=== PATIENT | female | born 1955 | race Caucasian/White ===

== ENCOUNTER → 2016-09-20 17:26 | Outpatient (CLI) | payer OTHER | END | disposition home or self-care (01) | LOC: D.MAMMO 08-29 13:15 | DX: Z12.31 Encounter for screening mammogram for malignant neoplasm of breast (principal) ==

== ENCOUNTER 2017-04-22 11:59 | Inpatient (IN) | payer OTHER ==
[~2017-04-22] VITALS: Ht 156.2 cm; Wt 62.3 kg
[2017-04-22 12:31] LABS: BASOPHILS 0.1 % (0-2); EOSINOPHILS 0 % (0-7); HEMATOCRIT 32.3 % (36.0-48.0); HEMOGLOBIN 10.8 g/dL (12-16); IMMATURE GRANULOCYTES 1.7 % (0-5); LYMPHOCYTES 4.3 % (15-50); MCH 33.5 pg (26.0-34.0); MCHC 33.4 g/dL (31.0-37.0); MCV 100.3 fL (80.0-100.0); MEAN PLATELET VOLUME 9.2 fL (7.4-10.4); MONOCYTES 3.1 % (2-11); NEUTROPHILS 90.8 % (40-80); PLATELET COUNT 226 10x3/uL (130-400); RBC 3.22 10x6/uL (4.00-5.40); RDW 13.1 % (11.5-14.5); WBC 15.6 10x3/uL (4.8-10.8)
[2017-04-22 12:55] LABS: ALKALINE PHOSPHATASE 80 U/L (46-116); ALT (SGPT) 24 U/L (10-68); BILIRUBIN - TOTAL 0.51 mg/dL (0.2-1.3); CALC OSMOLALITY 259 mosm/kg (275-300); CALCIUM 8.1 mg/dL (8.5-10.1); CARBON DIOXIDE 22.5 mmol/L (21.0-32.0); CHLORIDE - SERUM 95 mmol/L (98-107); CREATININE - SERUM 0.7 mg/dL (0.6-1.3); GLUCOSE 95 mg/dL (74-106); POTASSIUM - SERUM 3.7 mmol/L (3.5-5.1); PROTEIN - SERUM 6.6 g/dL (6.4-8.2); SODIUM 130 mmol/L (136-145); UREA NITROGEN 10 mg/dL (7-18); eGFR NON AFRICAN AMERICAN 90 mL/min (90-120)
[2017-04-22 13:27] LABS: APPEARANCE HAZY (CLEAR); BILIRUBIN NEGATIVE (NEGATIVE); COLOR YELLOW (YELLOW); GLUCOSE NEGATIVE (NEGATIVE); KETONE MODERATE mg/dL (NEGATIVE); LEUKOCYTE ESTERASE 1+ (NEGATIVE); NITRITE NEGATIVE (NEGATIVE); PH 7.5 (5.0-6.0); PROTEIN NEGATIVE (NEGATIVE); SPECIFIC GRAVITY 1.005 (1.005-1.020); UROBILINOGEN NORMAL (NORMAL)
[2017-04-22 13:30] LABS: BACTERIA FEW /hpf (NONE SEEN); RED CELLS - URINE 0-5 /hpf (0-5)
--- NOTE | 2017-04-22 14:40 | NUR ---
RECEIVED PATIENT TO ROOM 2130 VIA WHEELCHAIR FROM THE ED. PATIENT ALERT/ORINETED. RESP EVEN AND UNLABORED. PATIENT REPORTS DRY NON PRODUCTIVE COUGH. PATIENTS AT BEDSIDE. 18 GUAGE TO LEFT FOREARM. NS SALINE NOW INFUSING AT 125 ML/HR ORDERED. CALL LIGHT WITHIN REACH. PATIENT PLACED ON TELEMETRY AT THIS TIME. NO DISTRESS.
[2017-04-22] MEDS ORDERED: BIOTIN5 MG PO (14:52)
[2017-04-22] MEDS ORDERED: OMEGA 3 FISH OI1 CAP PO (14:52)
[2017-04-22] MEDS ORDERED: PRINIVIL20 MG PO (14:53)
[2017-04-22] MEDS ORDERED: TYLENOL PM1 TAB PO (14:54)
[2017-04-22] MEDS ORDERED: ADVIL200 MG PO (14:54)
[2017-04-22] MEDS ORDERED: AUGMENTIN 875-11 TAB PO (14:55)
[2017-04-22] MEDS ORDERED: FE C TABLET1 TAB PO (14:56)
[2017-04-22] MEDS ORDERED: PROBIOTIC250 MG PO (14:56)
[2017-04-22] MEDS ORDERED: LECITHIN1200 MG PO (14:58)
[2017-04-22] MEDS ORDERED: ADIPEX-P37.5 M1 PO (14:59)
[2017-04-22] MEDS ORDERED: MULTIPLE VITAMI1 TA1 PO (14:59)
[2017-04-22] MEDS ORDERED: EVISTA60 MG PO (15:00)
[2017-04-22] MEDS ORDERED: METOPROLOL TART50 MG PO (15:00)
[2017-04-22] MEDS ORDERED: PROZAC40 MG PO (15:01)
[2017-04-22] MEDS ORDERED: SYNTHROID50 MCG PO (15:01)
[2017-04-22] MEDS ORDERED: CO Q-10100 MG PO (15:02)
[2017-04-22 15:45] VITALS: BP 105/69; BMI 26.5
[2017-04-22 16:34] LABS: % SATURATION 7 % (15-55); IRON 12 ug/dl (35-150); TOTAL IRON BIND CAPACITY 162 ug/dl (260-445); UNSAT IRON BIND CAPACITY 150 ug/dl (150-375)
[2017-04-22 19:54] VITALS: BP 112/70
--- NOTE | 2017-04-22 20:00 | NUR ---
RESUMED CARE OF PT, LYING IN BED RESPIRATIONS EVEN AND UNLABORED ON 2LPM VIA NC. [address] ST ON TELEMETRY. LEFT FOREARM INFUSING NS @ 125. TEMP NOTED AT 101.5. WILL CONTINUE TO MONITOR. SEE NURSE ASSESSMENT. CALL LIGHT IN REACH.
[2017-04-23] VITALS: BP 114/76
--- NOTE | 2017-04-23 00:44 | NUR ---
LYING IN BED WITH EYES CLOSED, CALL LIGHT IN REACH. WILL CONTINUE TO MONITOR.
[2017-04-23 04:00] VITALS: BP 146/86
[2017-04-23 05:22] LABS: BASOPHILS 0 % (0-2); EOSINOPHILS 0.1 % (0-7); HEMATOCRIT 33.2 % (36.0-48.0); HEMOGLOBIN 10.8 g/dL (12-16); IMMATURE GRANULOCYTES 0.9 % (0-5); LYMPHOCYTES 5.5 % (15-50); MCH 33.2 pg (26.0-34.0); MCHC 32.5 g/dL (31.0-37.0); MCV 102.2 fL (80.0-100.0); MEAN PLATELET VOLUME 9.5 fL (7.4-10.4); MONOCYTES 3.2 % (2-11); NEUTROPHILS 90.3 % (40-80); PLATELET COUNT 252 10x3/uL (130-400); RBC 3.25 10x6/uL (4.00-5.40); RDW 13.4 % (11.5-14.5); WBC 14.3 10x3/uL (4.8-10.8)
[2017-04-23 05:57] LABS: ALBUMIN 1.9 g/dL (3.4-5.0); ALKALINE PHOSPHATASE 86 U/L (46-116); ALT (SGPT) 24 U/L (10-68); BILIRUBIN - TOTAL 0.32 mg/dL (0.2-1.3); CALC OSMOLALITY 263 mosm/kg (275-300); CALCIUM 8.3 mg/dL (8.5-10.1); CARBON DIOXIDE 24.1 mmol/L (21.0-32.0); CHLORIDE - SERUM 100 mmol/L (98-107); CREATININE - SERUM 0.6 mg/dL (0.6-1.3); GLUCOSE 92 mg/dL (74-106); POTASSIUM - SERUM 3.8 mmol/L (3.5-5.1); PRO BNP 815 pg/mL (0-125); PROTEIN - SERUM 6.6 g/dL (6.4-8.2); SODIUM 133 mmol/L (136-145); UREA NITROGEN 8 mg/dL (7-18); eGFR NON AFRICAN AMERICAN > 90 mL/min (90-120)
--- NOTE | 2017-04-23 07:15 | NUR ---
RESTING QUIETLY RESP UNLABORED NAD NOTED
--- NOTE | 2017-04-23 07:30 | NUR ---
ASSESSMENT COMPLETED. TELEMERTY SHOWS ST AT 106. 02 AT 2/M PER NC. LEFT FA WITH IV OF NS AT 125. NO TEMP. DENIES ANY NEEDS. CALL LIGHT IN REACH WITH SR UP
[2017-04-23 08:00] VITALS: BP 108/78
--- NOTE | 2017-04-23 13:07 | NUR ---
UP ON SIDE OF BED FOR DIET. DENIES ANY NEEDS.TELEMERTY SHOWS SRWILL MONITOR
[2017-04-23 19:00] VITALS: BP 122/72
--- NOTE | 2017-04-23 20:05 | NUR ---
IV SITED TO RIGHT WRIST, 22 GAUGE, FIRST ATTEMPT, PT TOLERTED WELL. RECONNECTED IV FLUIDS AND LEVAQUIN INFUSING. AT BED SIDE, BED LOW, CL IN REACH.
--- NOTE | 2017-04-24 03:29 | NUR ---
RESTING WITH EYES CLOSED, RESPERATIONS EVEN, NO S/S DISTRESS NOTED.
--- NOTE | 2017-04-24 03:47 | NUR ---
RESTING IN BED WITH NO DISTRESS. RESPS EVEN/NONLABORED. NO DISTRESS. CPOC.
[2017-04-24 04:00] VITALS: BP 131/80
--- NOTE | 2017-04-24 04:28 | NUR ---
UP TO BR, GAIT STEADY.
--- NOTE | 2017-04-24 05:46 | NUR ---
PT AWAKE AND MORE ALERT THEN AT THE BEGINNING OF THIS SHIFT, EARLY AM MED GIVEN WITH ICE WATER, PT DENIES PAIN OR NEEDS, BED LOW, CL IN REACH.
[2017-04-24 06:48] LABS: BASOPHILS 0.1 % (0-2); EOSINOPHILS 0 % (0-7); HEMATOCRIT 30.9 % (36.0-48.0); HEMOGLOBIN 10.2 g/dL (12-16); IMMATURE GRANULOCYTES 0.7 % (0-5); LYMPHOCYTES 6.4 % (15-50); MCH 33.1 pg (26.0-34.0); MCV 100.3 fL (80.0-100.0); MEAN PLATELET VOLUME 9.5 fL (7.4-10.4); MONOCYTES 2.1 % (2-11); NEUTROPHILS 90.7 % (40-80); PLATELET COUNT 229 10x3/uL (130-400); RBC 3.08 10x6/uL (4.00-5.40); RDW 13.8 % (11.5-14.5); WBC 11.8 10x3/uL (4.8-10.8)
[2017-04-24 07:08] LABS: ALBUMIN 1.6 g/dL (3.4-5.0); ALKALINE PHOSPHATASE 79 U/L (46-116); ALT (SGPT) 54 U/L (10-68); BILIRUBIN - TOTAL 0.25 mg/dL (0.2-1.3); CALC OSMOLALITY 274 mosm/kg (275-300); CALCIUM 8.4 mg/dL (8.5-10.1); CARBON DIOXIDE 19.9 mmol/L (21.0-32.0); CHLORIDE - SERUM 103 mmol/L (98-107); CREATININE - SERUM 0.5 mg/dL (0.6-1.3); GLUCOSE 147 mg/dL (74-106); POTASSIUM - SERUM 3.5 mmol/L (3.5-5.1); PROTEIN - SERUM 6.3 g/dL (6.4-8.2); SODIUM 137 mmol/L (136-145); UREA NITROGEN 8 mg/dL (7-18); eGFR NON AFRICAN AMERICAN > 90 mL/min (90-120)
--- NOTE | 2017-04-24 07:30 | NUR ---
RESTING QUIETLY RESP UNLABORED NAD NOTED
--- NOTE | 2017-04-24 07:40 | NUR ---
ASSESSMENT COMPLETED. 02 AT 2 L/M PER NC. TELEMERTY SHOWS SR. RIGHT WRIST IV. UP AB RENEE. CALL LIGHT IN REACH WITH SR UP. WILL MONITOR
[2017-04-24 08:18] VITALS: BP 121/72
[2017-04-24 09:14] LABS: FOLATE (FOLIC ACID) - SERUM 12.5 ng/mL (>3.0)
[2017-04-24 10:16] LABS: ANA REFLEX - DIRECT Negative (Negative)
[2017-04-24 12:23] VITALS: BP 101/65
--- NOTE | 2017-04-24 16:37 | NUR ---
UP FOR SHOWER. TOLORATED WELL, NO NEEDS VOICEC
[2017-04-24 17:06] VITALS: BP 127/82
--- NOTE | 2017-04-24 21:49 | NUR ---
HS MEDS GIVEN WITH FRESH ICE WATER. UP TO BR, GAIT STEADY. XANAX 0.25 MG GIVEN AT PT REQUEST TO ASSIST WITH REST, PT DECLINED BENADRYL AT THIS TIME, STATING THAT SHE DOESNT WANT TOO MUCH THAT WILL SEDATE HER. DENIES ANY OTHER NEEDS AT THIS TIME, BED LOW, CL IN REACH.
[2017-04-25] VITALS: BP 125/80
--- NOTE | 2017-04-25 04:22 | NUR ---
RESTING WITH EYES CLOSED, RESPERATIONS EVEN, NO S/S DISTRESS NOTED.
[2017-04-25 06:24] LABS: BASOPHILS 0.1 % (0-2); EOSINOPHILS 0 % (0-7); HEMATOCRIT 29.9 % (36.0-48.0); HEMOGLOBIN 10.1 g/dL (12-16); IMMATURE GRANULOCYTES 0.8 % (0-5); LYMPHOCYTES 9.4 % (15-50); MCH 33.2 pg (26.0-34.0); MCHC 33.8 g/dL (31.0-37.0); MCV 98.4 fL (80.0-100.0); MEAN PLATELET VOLUME 9.9 fL (7.4-10.4); MONOCYTES 4.4 % (2-11); NEUTROPHILS 85.3 % (40-80); PLATELET COUNT 248 10x3/uL (130-400); RBC 3.04 10x6/uL (4.00-5.40); RDW 13.6 % (11.5-14.5); WBC 13.3 10x3/uL (4.8-10.8)
[2017-04-25 06:50] LABS: ALBUMIN 1.6 g/dL (3.4-5.0); ALKALINE PHOSPHATASE 82 U/L (46-116); CALCIUM 8.4 mg/dL (8.5-10.1); CARBON DIOXIDE 24.5 mmol/L (21.0-32.0); CHLORIDE - SERUM 104 mmol/L (98-107); CREATININE - SERUM 0.5 mg/dL (0.6-1.3); GLUCOSE 152 mg/dL (74-106); POTASSIUM - SERUM 3.3 mmol/L (3.5-5.1); PROTEIN - SERUM 6.2 g/dL (6.4-8.2); SODIUM 139 mmol/L (136-145); eGFR NON AFRICAN AMERICAN > 90 mL/min (90-120)
[2017-04-25 06:51] LABS: ALT (SGPT) 272 U/L (10-68); CALC OSMOLALITY 279 mosm/kg (275-300); UREA NITROGEN 11 mg/dL (7-18)
--- NOTE | 2017-04-25 07:39 | NUR ---
AM ROUNDS- PT IN BED, WITH EYES CLOSED, RESP EVEN AND UNLABORED ON 2L NC, RT WRIST IV INFUSING NS AT 75CC/HR. BED LOW AND WHEELS LOCKED, BEDSIDE RAILS X2. CALL LIGHT IN REACH, NAD NOTED, WILL CONTINUE TO MONITOR.
[2017-04-25 09:00] VITALS: BP 136/79
--- NOTE | 2017-04-25 09:45 | NUR ---
AM MEDS GIVEN AT THIS TIME. AND CEFEPIME HUNG AT THIS TIME. PT DENIES ANY NEEDS AT THIS TIME. CALL LIGHT IN REACH, NAD NOTED, WILL CONTINUE TO MONITOR.
[2017-04-25 16:00] VITALS: BP 142/88
[2017-04-25 19:00] VITALS: BP 142/86
--- NOTE | 2017-04-25 20:58 | NUR ---
HS MEDS GIVEN WITH FRESH ICE WATER, PT STATED THAT SHE DOESNT WANT BENADRYL AGAIN TONIGHT BUT WOULD LIKE TO TAKE THE XANAX THAT IS ORDERED BUT WILL CALL WHEN AND ASK FOR IT WHEN SHE IS READY FOR IT. VISITIORS AT BED SIDE.
--- NOTE | 2017-04-26 01:31 | NUR ---
CALL LIGHT IN REACH, WILL CONTINUE WITH PLAN OF CARE.
[2017-04-26 03:11] LABS: MYCOPLASMA PNEUMO IGG 256 U/mL (0-99)
[2017-04-26 04:00] VITALS: BP 142/84
[2017-04-26 06:46] LABS: BASOPHILS 0.1 % (0-2); EOSINOPHILS 0 % (0-7); HEMATOCRIT 31.1 % (36.0-48.0); HEMOGLOBIN 10.4 g/dL (12-16); IMMATURE GRANULOCYTES 1.1 % (0-5); LYMPHOCYTES 11.5 % (15-50); MCH 33.2 pg (26.0-34.0); MCHC 33.4 g/dL (31.0-37.0); MCV 99.4 fL (80.0-100.0); MEAN PLATELET VOLUME 9.8 fL (7.4-10.4); MONOCYTES 6.5 % (2-11); NEUTROPHILS 80.8 % (40-80); PLATELET COUNT 275 10x3/uL (130-400); RBC 3.13 10x6/uL (4.00-5.40); RDW 13.9 % (11.5-14.5); WBC 11.3 10x3/uL (4.8-10.8)
[2017-04-26 07:02] LABS: ALBUMIN 1.8 g/dL (3.4-5.0); ALKALINE PHOSPHATASE 79 U/L (46-116); ALT (SGPT) 328 U/L (10-68); BILIRUBIN - TOTAL 0.26 mg/dL (0.2-1.3); CALC OSMOLALITY 281 mosm/kg (275-300); CALCIUM 8.1 mg/dL (8.5-10.1); CHLORIDE - SERUM 105 mmol/L (98-107); CREATININE - SERUM 0.5 mg/dL (0.6-1.3); GLUCOSE 122 mg/dL (74-106); POTASSIUM - SERUM 4.2 mmol/L (3.5-5.1); PROTEIN - SERUM 5.3 g/dL (6.4-8.2); SODIUM 141 mmol/L (136-145); UREA NITROGEN 13 mg/dL (7-18); eGFR NON AFRICAN AMERICAN > 90 mL/min (90-120)
--- NOTE | 2017-04-26 07:19 | NUR ---
AM ROUNDS- PT IN BED, WITH EYES CLOSED. BED LOW AND WHEELS LOCKED, BEDSIDE RAILS X2. RESP EVEN AND UNLABORED. RT WRIST IV SL AT THIS TIME. CALL LIGHT IN REACH, NAD NOTED, WILL CONTINUE TO MONITOR.
[2017-04-26 08:00] VITALS: BP 144/87
--- NOTE | 2017-04-26 09:07 | NUR ---
AM MEDS GIVEN AT THIS TIME. PT DENIES ANY NEEDS, CALL LIGHT IN REACH, NAD NOTED, WILL CONTINUE TO MONITOR.
[2017-04-26 12:00] VITALS: BP 139/83
[2017-04-26 13:36] VITALS: Ht 156.2 cm; Wt 62.3 kg
--- NOTE | 2017-04-26 14:42 | NUR ---
Patient Name: MARBIN MOSES Admission Status: ER Accout number: [id number] Admission Date: 04-22-2017 : 1955 Admission Diagnosis:PNEUMONIA, UNSPECIFIED ORGANISM Attending: KAMILLE NOYOLA Current LOS: 4 Anticipated DC Date: Planned Disposition: Home Primary Insurance: [facility] Discharge Planning Comments: CM MET WITH PATIENT IN REGARDS TO DISCHARGE PLANNING/NEEDS. PATIENT RESIDES AT HOME WITH HER SPOUSE, DONNY [phone]. THIS IS WHERE SHE PLANS TO RETURN. SHE STATED THAT HER SPOUSE WILL BE HER TRANSPORTATION HOME ON DISCHARGE. SHE DOES NOT CURRENTLY RECEIVE ANY COMMUNITY RESOURCES. SHE HAS NO MEDICAL EQUIPMENT. CASEMANAGEMENT WILL FOLLOW IN CASE NEEDS ARISE PRIOR TO DISCHARGE. Esthetician And Manager [employer]: Lauren Dahl Is the patient Alert and Oriented? Yes * How many steps to enter\exit or inside your home? 0 * PCP SEES [facility] [address] * Pharmacy [facility] * Preadmission Environment Home with Family * ADLs Independent * Equipment None * List name and contact numbers for known caregivers / representatives who currently or will assist patient after discharge: DONNY MOSES, SPOUSE, * Community resources currently utilized None * Additional services required to return to the preadmission environment? No * Can the patient safely return to the preadmission environment? Yes * Has this patient been hospitalized within the prior 30 days at any hospital? No
--- NOTE | 2017-04-26 15:08 | NUR ---
RT WRIST IV LEAKING D/C AT THIS TIME, WITH TIP INTACT. WILL START NEW IV.
[2017-04-26 15:36] VITALS: BP 132/77
[2017-04-26 19:00] VITALS: BP 139/79
--- NOTE | 2017-04-26 19:00 | NUR ---
REC REPORT, ASSUMED CARE OF PT. ALERT/AWAKE DENIES ANY NEEDS. ON O2/2L. RR 20 EVEN U/L. VISITOR PRESENT IN ROOM.
[2017-04-27] VITALS: BP 146/84
--- NOTE | 2017-04-27 00:17 | NUR ---
IV IN LEFT HAND INFILTRATED. NEW IV RESITED IN RT HAND 24G. RESTARTED IVF.
--- NOTE | 2017-04-27 04:30 | NUR ---
AWAKE DENIES ANY NEEDS OR DISCOMFORTS.
[2017-04-27 06:54] LABS: HEMATOCRIT 33.3 % (36.0-48.0); HEMOGLOBIN 11.2 g/dL (12-16); LYMPHOCYTES 9.7 % (15-50); MCH 33.4 pg (26.0-34.0); MCHC 33.6 g/dL (31.0-37.0); MCV 99.4 fL (80.0-100.0); MEAN PLATELET VOLUME 9.4 fL (7.4-10.4); PLATELET COUNT 306 10x3/uL (130-400); RBC 3.35 10x6/uL (4.00-5.40); RDW 13.9 % (11.5-14.5); WBC 10.7 10x3/uL (4.8-10.8)
[2017-04-27 07:12] LABS: CALCIUM 8.4 mg/dL (8.5-10.1); CHLORIDE - SERUM 101 mmol/L (98-107); POTASSIUM - SERUM 4.2 mmol/L (3.5-5.1); SODIUM 139 mmol/L (136-145); UREA NITROGEN 11 mg/dL (7-18)
[2017-04-27 07:30] LABS: CALC OSMOLALITY 278 mosm/kg (275-300); CREATININE - SERUM 0.8 mg/dL (0.6-1.3); GLUCOSE 130 mg/dL (74-106); eGFR NON AFRICAN AMERICAN 77 mL/min (90-120)
[2017-04-27 07:31] LABS: ALKALINE PHOSPHATASE 82 U/L (46-116); ALT (SGPT) 271 U/L (10-68); MAGNESIUM - SERUM 1.9 mg/dL (1.8-2.4); PHOSPHOROUS 4.3 mg/dL (2.5-4.9); PROTEIN - SERUM 6.6 g/dL (6.4-8.2)
--- NOTE | 2017-04-27 07:51 | NUR ---
PT IS GOING FOR TEST IN WHEELCHAIR WILL CONT TO MONITOR WHEN PT RETURNS TO FLOOR
[2017-04-27 08:00] VITALS: BP 128/80
[2017-04-27 11:17] LABS: HEPATITIS C ANTIBODY <0.1 (0.0-0.9)
[2017-04-27 12:25] VITALS: BP 125/81
[2017-04-27 16:24] VITALS: BP 145/81
--- NOTE | 2017-04-27 18:31 | NUR ---
PT SITTING UP IN BED WATCHING TV WITH AT BEDSIDE DENY NEEDS
[2017-04-27 19:00] VITALS: BP 164/85
--- NOTE | 2017-04-27 19:29 | NUR ---
PT RESTING IN BED WATCHING TV. ALERT AND ORIENTED X 4. DENIES PAIN OR DISCOMFORT AT THIS TIME. PT STATES SHE IS GOING HOME TOMORROW. 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 IV INFUSING TO RIGHT HAND WITHOUT DIFFICULTY. NO REDNESS OR EDEMA NOTED AT THE INSERTION SITE. O2 IS ON @ 2LPM PER NC. NO SOB NOTED. LUNG SOUNDS ARE CLEAR, BUT DIMINISHED. TELEMETRY UNIT IS ON AND INTACT. SR'S ARE UP X 2 IN BED. CALL LIGHT AND BEDSIDE TABLE ARE WITHIN EASY REACH.
--- NOTE | 2017-04-27 22:11 | NUR ---
PT IS RESTING IN BED WATCHING TV. NO NEEDS VOICED.
--- NOTE | 2017-04-27 22:59 | NUR ---
PT RESTING WITH EYES CLOSED. RESP EVEN AND REGULAR. SR UP X2, CALL LIGHT WITHINREACH.
[2017-04-28] VITALS: BP 148/81
--- NOTE | 2017-04-28 03:00 | NUR ---
PT IS RESTING QUIETLY IN BED WITH EYES CLOSED. RESPS ARE EVEN AND UNLABORED. NO ACUTE DISTRESS NOTED.
[2017-04-28 04:00] VITALS: BP 154/86
[2017-04-28 05:56] LABS: HEMATOCRIT 31.8 % (36.0-48.0); HEMOGLOBIN 10.8 g/dL (12-16); LYMPHOCYTES 19.5 % (15-50); MEAN PLATELET VOLUME 9.2 fL (7.4-10.4); PLATELET COUNT 280 10x3/uL (130-400); RBC 3.18 10x6/uL (4.00-5.40); RDW 13.9 % (11.5-14.5); WBC 9.6 10x3/uL (4.8-10.8)
--- NOTE | 2017-04-28 06:01 | NUR ---
PT IS RESTING IN BED WITH EYES OPEN. NO NEEDS VOICED. TOLERATED AM MEDS WITHOUT DIFFICULTY.
[2017-04-28 06:02] LABS: CALC OSMOLALITY 276 mosm/kg (275-300); CALCIUM 8.6 mg/dL (8.5-10.1); CARBON DIOXIDE 28.7 mmol/L (21.0-32.0); CHLORIDE - SERUM 101 mmol/L (98-107); GLUCOSE 118 mg/dL (74-106); PHOSPHOROUS 4.5 mg/dL (2.5-4.9); POTASSIUM - SERUM 3.9 mmol/L (3.5-5.1); SODIUM 138 mmol/L (136-145); UREA NITROGEN 12 mg/dL (7-18)
[2017-04-28 06:04] LABS: CREATININE - SERUM 0.5 mg/dL (0.6-1.3); eGFR NON AFRICAN AMERICAN > 90 mL/min (90-120)
--- NOTE | 2017-04-28 07:55 | NUR ---
PT AOX4 RESP EVEN AND NONLABORED PT DENIES NEEDS AT THIS TIME IV TO RIGHT HAND PATENT AND INTACT AT THIS TIME SRX2 BED AT LOWEST SETTING CALL LIGHT WITHIN REACH WILL CONTINUE TO MONITOR
[2017-04-28 08:49] VITALS: BP 142/87
[2017-04-28 13:18] VITALS: BP 138/94
[2017-04-28] MEDS ORDERED: LEVAQUIN750 MG PO (14:42)
[2017-04-28] MEDS ORDERED: SINGULAIR10 MG PO (14:43)
[2017-04-28] MEDS ORDERED: MUCINEX DM ER1 EAC1 PO (14:43)
[2017-04-28] MEDS ORDERED: BENZONATATE200 MG PO (14:43)
[2017-04-28] MEDS ORDERED: PREDNISONE10 MG PO (14:44)
--- NOTE | 2017-04-28 16:41 | NUR ---
IV DISCONTINUED WITH CATHETER INTACT AT THIS TIME PT GIVEN DISCHARGE INSTRUCTIONS AT THIS TIME PT TAKEN VIA WHEELCHAIR VIA PRIVATE VEHICLE AT THIS TIME
== END 2017-04-28 16:43 | disposition home or self-care (01) | DRG 190 ==
LOC: D.ER 11:59 → D.M2 14:18
PROVIDERS: Emergency Medicine; Family Medicine; Internal Medicine Pulmonary Disease; ADMIT Emergency Medicine
DX: J44.0 Chronic obstructive pulmonary disease with (acute) lower respiratory infection (principal); J15.6 Pneumonia due to other Gram-negative bacteria; J13 Pneumonia due to Streptococcus pneumoniae; E87.1 Hypo-osmolality and hyponatremia; F17.203 Nicotine dependence unspecified, with withdrawal; J90 Pleural effusion, not elsewhere classified; J84.9 Interstitial pulmonary disease, unspecified; J44.1 Chronic obstructive pulmonary disease with (acute) exacerbation; K59.09 Other constipation; I10 Essential (primary) hypertension; K21.9 Gastro-esophageal reflux disease without esophagitis; E03.9 Hypothyroidism, unspecified; D50.9 Iron deficiency anemia, unspecified; J30.9 Allergic rhinitis, unspecified

== ENCOUNTER → 2017-05-23 14:54 | Outpatient (CLI) | payer OTHER ==
[2017-04-26 13:36] VITALS: BMI 25.4
[~2017-05-23 14:54] MED LIST: ADIPEX-P37.5 M1 PO; ADVIL200 MG PO; AUGMENTIN 875-11 TAB PO; BENZONATATE200 MG PO; BIOTIN5 MG PO; CO Q-10100 MG PO; EVISTA60 MG PO; FE C TABLET1 TAB PO; LECITHIN1200 MG PO; LEVAQUIN750 MG PO; METOPROLOL TART50 MG PO; MUCINEX DM ER1 EAC1 PO; MULTIPLE VITAMI1 TA1 PO; OMEGA 3 FISH OI1 CAP PO; PREDNISONE10 MG PO; PRINIVIL20 MG PO; PROBIOTIC250 MG PO; PROZAC40 MG PO; SINGULAIR10 MG PO; SYNTHROID50 MCG PO; TYLENOL PM1 TAB PO
== END | disposition home or self-care (01) ==
LOC: D.RAD 08:30
DX: J18.9 Pneumonia, unspecified organism (principal)

== ENCOUNTER → 2017-07-20 08:46 | Outpatient (CLI) | payer OTHER ==
[2017-04-26 13:36] VITALS: BMI 25.4
== END | disposition home or self-care (01) ==
LOC: D.RT 08:46
DX: J44.9 Chronic obstructive pulmonary disease, unspecified (principal)

== ENCOUNTER → 2018-05-24 10:11 | Outpatient (CLI) | payer OTHER ==
[2017-04-26 13:36] VITALS: BMI 25.4
== END | disposition home or self-care (01) ==
LOC: D.RAD 10:11
DX: K57.30 Diverticulosis of large intestine without perforation or abscess without bleeding (principal); Z12.89 Encounter for screening for malignant neoplasm of other sites; Z12.11 Encounter for screening for malignant neoplasm of colon

== ENCOUNTER 2019-04-26 11:01 | Emergency (ER) | payer BC ==
[~2019-04-26] VITALS: Ht 156.2 cm; Wt 47.7 kg
[2019-04-26 11:03] VITALS: Ht 156.2 cm; Wt 47.7 kg
[2019-04-26 12:07] LABS: BASOPHILS 0.1 % (0-2); EOSINOPHILS 0.5 % (0-7); HEMATOCRIT 34.4 % (36.0-48.0); HEMOGLOBIN 11.7 g/dL (12-16); IMMATURE GRANULOCYTES 0.3 % (0-5); LYMPHOCYTES 10.6 % (15-50); MCH 34.2 pg (26.0-34.0); MCV 100.6 fL (80.0-100.0); MEAN PLATELET VOLUME 8.8 fL (7.4-10.4); MONOCYTES 10.3 % (2-11); NEUTROPHILS 78.2 % (40-80); PLATELET COUNT 218 10x3/uL (130-400); RBC 3.42 10x6/uL (4.00-5.40); RDW 12.5 % (11.5-14.5); WBC 12.7 10x3/uL (4.8-10.8)
[2019-04-26 12:25] LABS: ALBUMIN 3.1 g/dL (3.4-5.0); ALKALINE PHOSPHATASE 67 U/L (46-116); ALT (SGPT) 21 U/L (10-68); BILIRUBIN - TOTAL 0.53 mg/dL (0.2-1.3); CALC OSMOLALITY 266 mosm/kg (275-300); CALCIUM 8.8 mg/dL (8.5-10.1); CARBON DIOXIDE 28.1 mmol/L (21.0-32.0); CHLORIDE - SERUM 100 mmol/L (98-107); CREATININE - SERUM 0.8 mg/dL (0.6-1.3); GLUCOSE 110 mg/dL (74-106); POTASSIUM - SERUM 4.2 mmol/L (3.5-5.1); PROTEIN - SERUM 7.3 g/dL (6.4-8.2); SODIUM 134 mmol/L (136-145); UREA NITROGEN 8 mg/dL (7-18); eGFR NON AFRICAN AMERICAN 76 mL/min (90-120)
[2019-04-26 12:36] LABS: CKMB 0.1 U/L (0.0-3.6); CREATINE KINASE 45 UL (21-215)
[2019-04-26 12:37] LABS: TROPONIN-I < 0.017 ng/mL (0.000-0.060)
[2019-04-26] MEDS ORDERED: TESSALON PERLE100 MG PO (13:04)
[2019-04-26] MEDS ORDERED: ALBUTEROL SULF8.5 GM INH (13:04)
[2019-04-26] MEDS ORDERED: DOXYCYCLINE HY100 M2 PO (13:04)
[2019-04-26 13:18] VITALS: BP 106/66
== END 2019-04-26 13:19 | disposition home or self-care (01) ==
LOC: D.ER 11:01
PROVIDERS: Emergency Medicine
DX: J40 Bronchitis, not specified as acute or chronic (principal); J01.90 Acute sinusitis, unspecified

== ENCOUNTER 2019-07-11 09:00 | Outpatient (CLI) | payer BC ==
[2019-04-26 11:03] VITALS: BMI 19.5
[~2019-07-11 09:00] MED LIST changes: +ALBUTEROL SULF8.5 GM INH; +DOXYCYCLINE HY100 M2 PO; +TESSALON PERLE100 MG PO
== END 2019-07-11 10:00 | disposition home or self-care (01) ==
LOC: D.MAMMO 09:00
PROVIDERS: ATTEND Family Medicine
DX: Z12.31 Encounter for screening mammogram for malignant neoplasm of breast (principal)

== ENCOUNTER 2021-02-16 15:15 | Outpatient (CLI) | payer MEDICARE, BC ==
[2019-04-26 11:03] VITALS: BMI 19.5
== END 2021-02-16 23:59 | disposition home or self-care (01) ==
LOC: D.MAMMO 15:15
PROVIDERS: ATTEND Registered Nurse Emergency
DX: Z12.31 Encounter for screening mammogram for malignant neoplasm of breast (principal)